=== PATIENT | female | born 1985 | race Caucasian/White ===

== ENCOUNTER 2016-09-26 19:42 | Emergency (ER) | payer OTHER ==
[2016-09-26] MEDS ORDERED: DIPHENHYDRAMINE HCL 50 MG CAPSULE PO ONE (20:01)
[2016-09-26] MEDS ORDERED: FAMOTIDINE 20 MG TABLET PO ONE (20:01)
--- NOTE | 2016-09-26 20:01 | ER Document Report ---
ED Medical Screen (RME) - General Chief Complaint: Rash Stated Complaint: POSSIBLE RASH Time seen by provider: 19:59 Mode of Arrival: Ambulatory Information source: Patient Notes: 31-year-old female presents to ED for rash for a couple months. States this started just on her right arm now it has spread to her chest abdomen back and legs. Patient states that starting to get itchy now. Last menstrual period I have greeted and performed a rapid initial assessment of this patient. A comprehensive ED assessment and evaluation of the patient, analysis of test results and completion of medical decision making process will be conducted by an additional ED providers. TRAVEL OUTSIDE OF THE [place] IN LAST 30 DAYS: No - Related Data Allergies/Adverse Reactions: No Known Allergies Allergy (Unverified 10/16/11 15:58) Past Medical History Renal/ Medical History: Reports: Hx Ectopic Past Surgical History: Reports: Hx Orthopedic Surgery - knee, Hx Tubal Ligation - Immunizations Hx Diphtheria, Pertussis, Tetanus Vaccination: Yes
[2016-09-26 22:13] VITALS: BP 131/86
--- NOTE | 2016-09-26 22:20 | ER Document Report ---
HPI - HPI Patient complains to provider of: rash Pain Level: 1 Context: Patient is a 31-year-old female that comes emergency department for chief complaint of a rash, she states she has had a rash intermittently since June but over the past week or so she had a breakout the started on her back and now is on her arms and abdomen. She states the rash is circular and very itchy. Patient has not tried to place any cream or tried any treatments for this. Patient denies any daily medications. Past medical history of tubal ligation. - REPRODUCTIVE Reproductive: DENIES: : - DERM Skin Color: Normal, [place] Past Medical History - General Information source: Patient - Social History Smoking Status: Never Smoker Frequency of alcohol use: None Drug Abuse: None Lives with: Family Family History: Reviewed & Not Pertinent Patient has suicidal ideation: No Patient has homicidal ideation: No Renal/ Medical History: Reports: Hx Ectopic . Denies: Hx Peritoneal Dialysis Past Surgical History: Reports: Hx Orthopedic Surgery - knee, Hx Tubal Ligation - Immunizations Hx Diphtheria, Pertussis, Tetanus Vaccination: Yes Vertical Provider Document - CONSTITUTIONAL General Appearance: WD/WN, No Apparent Distress - INFECTION CONTROL TRAVEL OUTSIDE OF THE [place] IN LAST 30 DAYS: No - HEENT HEENT: Atraumatic, Normocephalic - NECK Neck: Normal Inspection - RESPIRATORY Respiratory: Breath Sounds Normal, No Respiratory Distress O2 Sat by Pulse Oximetry: 98 - CARDIOVASCULAR Cardiovascular: Regular Rate, Regular Rhythm - GI/ABDOMEN Gastrointestinal: Abdomen Soft, Abdomen Non-Tender - MUSCULOSKELETAL/EXTREMETIES Musculoskeletal/Extremeties: MAEW, FROM, Non-Tender - NEURO Level of Consciousness: Awake, Alert, Appropriate - DERM Integumentary: Rash - Circular rash in separate spots over the arms, abdomen, and lower back. Nontender, no fluctuance or induration, no vesicles, pustules, the rash is macular in appearance. Irregular erythematous borders. Course - Re-evaluation Re-evalutation: Itchy rash with irregular erythematous borders, macular. Appears to be most likely fungal, no plaques or other abnormalities are noted. No signs of infection with no significant erythema, no induration or fluctuance. Patient referred to dermatology as well. - Vital Signs Vital signs: Temp Pulse Resp BP Pulse Ox 97.9 F 73 16 131/86 H 98 09/26/16 22:10 09/26/16 22:10 09/26/16 22:10 09/26/16 22:10 09/26/16 22:10 Discharge - Discharge Clinical Impression: Rash Condition: Stable Disposition: HOME, SELF-CARE Additional Instructions: Apply cream as directed. Take Zyrtec antihistamine as directed, take Benadryl at night for itching if needed. If symptoms continue follow-up with dermatology referral for additional management. Return to emergency department for any concerning or worsening symptoms including spreading redness, fever, etc. Prescriptions: Cetirizine HCl [Zyrtec 10 mg Tablet] 1 tab PO DAILY #30 tablet Clotrimazole 30 gm TP ASDIR PRN #2 cream.gm. PRN Reason: Referrals: JUSTINA SANTIAGO, [ACTIVE STAFF] - Follow up as needed
== END 2016-09-26 22:19 | disposition home or self-care (01) ==
LOC: ER 19:42
DX: R21 Rash and other nonspecific skin eruption (principal); Z98.51 Tubal ligation status
CPT/HCPCS: 99282

== ENCOUNTER 2017-04-16 18:24 | Emergency (ER) | payer MEDICAID ==
--- NOTE | 2017-04-16 19:19 | ER Document Report ---
ED Extremity Problem, Lower - General Chief Complaint: Foot Injury Stated Complaint: RIGHT FOOT/ TOE INJURY Time Seen by Provider: 04/16/17 19:01 Mode of Arrival: Ambulatory Information source: Patient Notes: 31-year-old female presents to ED for injury to her right great toe around 1 PM today. She states she was playing with the dog and accidentally kicked the pool table while chasing her dog. She is having bleeding around the toenail and under the toenail. She is concerned that she might have broken her left great toe. TRAVEL OUTSIDE OF THE [place] IN LAST 30 DAYS: No - HPI Patient complains to provider of: Injury, Pain, Swelling Location: Great Toe - Right Occurred: This afternoon Where: Home, Indoors Onset/Duration: Sudden Quality of pain: Sharp Severity: Moderate Pain Level: 4 Context: Direct blow Recent injury: Yes Associated symptoms: Painful ambulation Exacerbated by: Movement, Walking Relieved by: Elevation, Ice, Rest - Related Data Allergies/Adverse Reactions: No Known Allergies Allergy (Unverified 10/16/11 15:58) Past Medical History - General Information source: Patient - Social History Smoking Status: Current Every Day Smoker Cigarette use (# per day): Yes - 10 cigs a day Chew tobacco use (# tins/day): No Smoking Education Provided: Yes - less than 1 min Frequency of alcohol use: None Drug Abuse: None Occupation: cashier gambling Lives with: Spouse/Significant other Family History: Arthritis, CAD, DM, Hyperlipidemia, Hypertension Patient has suicidal ideation: No Patient has homicidal ideation: No - Past Medical History Cardiac Medical History: Reports: None Pulmonary Medical History: Reports: None EENT Medical History: Reports: None Neurological Medical History: Reports: None Endocrine Medical History: Reports: None Renal/ Medical History: Reports: Hx Ectopic Malignancy Medical History: Reports: None GI Medical History: Reports: None Musculoskeltal Medical History: Reports Hx Musculoskeletal Trauma Skin Medical History: Reports None Psychiatric Medical History: Reports: None Traumatic Medical History: Reports: None Infectious Medical History: Reports: None Past Surgical History: Reports: Hx Gynecologic Surgery - left tube removed, Hx Orthopedic Surgery - knee, Hx Tubal Ligation - Immunizations Hx Diphtheria, Pertussis, Tetanus Vaccination: Yes Review of Systems - Review of Systems Constitutional: No symptoms reported EENT: No symptoms reported Cardiovascular: No symptoms reported Respiratory: No symptoms reported Gastrointestinal: No symptoms reported Genitourinary: No symptoms reported Female Genitourinary: No symptoms reported Musculoskeletal: No symptoms reported Skin: No symptoms reported Hematologic/Lymphatic: No symptoms reported Neurological/Psychological: No symptoms reported -: Yes All other systems reviewed and negative Physical Exam - Vital signs Vitals: Temp Pulse Resp BP Pulse Ox 98.6 F 93 16 119/79 100 04/16/17 18:27 04/16/17 18:27 04/16/17 18:27 04/16/17 18:27 04/16/17 18:27 Interpretation: Normal - General General appearance: Appears well, Alert - HEENT Head: Normocephalic, Atraumatic Eyes: Normal Pupils: PERRL - Respiratory Respiratory status: No respiratory distress Chest status: Nontender Breath sounds: Normal Chest palpation: Normal - Cardiovascular Rhythm: Regular Heart sounds: Normal auscultation Murmur: No - Abdominal Inspection: Normal Distension: No distension Bowel sounds: Normal Tenderness: Nontender Organomegaly: No organomegaly - Back Back: Normal, Nontender - Extremities General upper extremity: Normal inspection, Nontender, Normal color, Normal ROM , Normal temperature General lower extremity: Normal color, Normal ROM, Normal temperature. No: Angelika's sign Foot: Tender, Ecchymosis, Nail injury, No evidence of FB - Neurological Neuro grossly intact: Yes Cognition: Normal Orientation: AAOx4 [place] Coma Scale Eye Opening: Spontaneous [place] Coma Scale Verbal: Oriented [place] Coma Scale Motor: Obeys Commands [place] Coma Scale Total: 15 Speech: Normal Motor strength normal: LUE, RUE, LLE, RLE Sensory: Normal - Psychological Associated symptoms: Normal affect, Normal mood - Skin Skin Temperature: Warm Skin Moisture: Dry Skin Color: Normal Course - Re-evaluation Re-evalutation: 04/16/17 20:48 Discussed x-ray with patient and written report given to patient for follow-up. Trephanation completed to the right great pain with a large amount of blood return. Patient medicated with ibuprofen, Keflex, and [place] dispense back in the emergency room and discharged home with prescription for ibuprofen and Keflex. Patient instructed to follow-up with orthopedic - Vital Signs Vital signs: Temp Pulse Resp BP Pulse Ox 98.6 F 93 16 119/79 100 04/16/17 18:27 04/16/17 18:27 04/16/17 18:27 04/16/17 18:27 04/16/17 18:27 - Diagnostic Test Radiology reviewed: Image reviewed, Reports reviewed Procedures - Immobilization Right Toe Great toe Time completed: 20:47 Pre-Proc Neuro Vasc Exam: Normal Immobilizer type: Crutches, Post-op shoe Performed by: MARY Post-Proc Neuro Vasc Exam: Normal Alignment checked and good: Yes - Nail Trephanation/Removal Right Great toe Time completed: 20:46 Nail Trepanation/Removal Location: nail trepanantion Betadine prep applied: Yes Method of Drainage: Nail cauterized Sterile Dressing Applied: Yes Finger Splint: No - post op shoe Discharge - Discharge Clinical Impression: open tuft fracture right great toe Condition: Stable Disposition: HOME, SELF-CARE Additional Instructions: Fractured Toe You have fractured your toe. Although this fracture doesn't need a cast or splint, emergency evaluation was needed to assess the straightness of the bones and joints. Reduction ("setting") is necessary for toe fractures which are crooked or twisted. A toe fracture will heal in about three weeks. Usually, the fractured toe is taped to the next toe. The second toe acts as a moving splint to protect the broken one. Ice and elevation help during the first 48 hours. You may need crutches at first if walking is painful. When you begin walking, be careful NOT to do things that hurt. If weight bearing is not comfortable within a few days, you may require a special shoe, walking boot, or cast. Call the doctor or return at once if severe swelling, severe pain, or numbness develop in the toe, or if you suspect you may have re-injured it. Your fracture is in the end of your toe. It is an open tuft fracture which means that there is a opening to the environment. Is very important that you follow-up with orthopedics for this open tuft fracture. Subungual Hematoma You have a collection of blood between the nail bed and nail, called a subungual hematoma. This injury is often very painful due to the pressure that builds up under the nail. The pressure is relieved by draining blood from beneath the nail, either by creating some small holes in it, or by the nail from the skin. This will usually stop the pain. Sometimes the nail must be removed completely to examine the nail bed for injury. You should elevate the injured digit as much as possible for the next two days. Usually the injured nail will separate from its bed over the next few weeks. A new nail will grow over the exposed nail bed. This may take two or three months. If swelling around the cuticle, redness, fever, or increasing pain occur, you should call the doctor immediately. Cephalexin The antibiotic you've been prescribed is a member of the cephalosporin class. This type of antibiotic covers a wide variety of infections, including those of the skin, lungs, and urinary tract. It's useful for staph infections. This antibiotic is slightly similar to the penicillin family. In rare cases , a person who is allergic to penicillin will also be allergic to this medication. If you have had a severe allergic reaction to penicillin, and have not taken this antibiotic since that time, notify your doctor. Antibiotics which cover many germs ("broad spectrum" antibiotics) are more likely to cause diarrhea or "yeast" infections. Women prone to vaginal yeast problems may suffer an attack after taking this antibiotic. In infants, oral thrush (white spots "stuck" on the cheek) or yeast diaper rash may result. See your doctor if these problems occur. Call at once if you develop itching, hives , shortness of breath, or lightheadedness. USE OF CRUTCHES: The doctor has recommended that you not bear weight at this time. You will need to use crutches. Adjust the crutches so the tops come to about two inches under the armpit while you are standing upright. Use your hands -- not your armpits -- to support your weight. To get into a chair, support yourself with one crutch on the injured side. Hold the chair with the other hand, then lower yourself while putting all your weight on the good leg. Going up stairs is `good leg up, step up, then bring up crutches and bad leg.' Down stairs is `bad leg and crutches down, then bring good leg down.' If you develop numbness or swelling in an arm or hand, you are using the crutches incorrectly. Return if you are having any problems with the crutches. Post-Op Shoe You are to use a "post-op shoe," sometimes also called a "bunnion shoe." This shoe helps protect minor fractures, sprains, and other injuries of the toes or foot. You may remove the shoe for bathing. Walk carefully. If you're feeling pain, put less weight on the foot, take smaller steps, or use a cane. If you have a new injury, you may need to use crutches for the first couple of days. If pain still prevents walking after a few days, contact the doctor. If there's unexpected pain in your foot, if blisters or sore spots develop , or if the shoe is physically coming apart, return at once. Remember that you' re welcome to come in at any time to have the fit of the shoe checked and adjusted. ICE & ELEVATION: Apply ice packs frequently against the painful area. Many different schedules are recommended, such as "20 minutes on, 20 minutes off" or "one hour ice, two hours rest." If you need to work, you may need to go longer between ice treatments. You should plan to have the area ice packed AT LEAST one- fourth of the time. The ice should be applied over the wrap, tape, or splint, or over a layer of cloth -- not directly against the skin. Some ice bags have a built-in cloth and can be put directly on the skin. Your injured part should be elevated as much as possible over the next 48 hours. Try to keep the injury above the level of the heart. Avoid use of the injured area. Elevation and rest will decrease the swelling. USE OF JIFI-FDI-POSZVKS IBUPROFEN: Ibuprofen (Advil, Nuprin, Medipren, Motrin IB) is a medication for fever and pain control. In addition, it has anti- inflammatory effects which may be beneficial, especially in the treatment of injuries. It's best to take ibuprofen with food. Persons with ulcer disease or allergy to aspirin should notify their physician of this before taking ibuprofen. Ibuprofen can be given every four to six hours, for a total of four doses daily. Age Pain or fever dose Antiinflammatory dose 6-8 yr 200 mg (1 tab) 200 mg (1 tab) 9-11 yr 200 mg (1 tab) 200-400 mg (1-2 tab) 11-14 yr 200-400 mg (1-2 tab) 400 mg (2 tab) 15-adult 400 mg (2 tab) 600 mg (3 tab) ORAL NARCOTIC MEDICATION: You have been given a dispense pack of [place] for pain control. This medication is a narcotic. It's best taken with food, as nausea can result if taken on an empty stomach. Don't operate machinery or drive within six hours of taking this medication. Do not combine this medicine with alcohol, or with any medication which can cause sedation (such as cold tablets or sleeping pills) unless you get permission from the physician. Narcotics tend to cause constipation. If possible, drink plenty of fluids and eat a diet high in fiber and fruits. Please be aware that prescription narcotics also have the potential for abuse. People become addicted to these medications because of the general sense of wellbeing that they induce. This feeling along with a significant reduction in tension, anxiety, and aggression provides a stimulating seductive quality to these drugs. Once your pain is under control, we encourage you to discard your unused narcotics. FOLLOW-UP CARE: If you have been referred to a physician for follow-up care, call the physician s office for an appointment as you were instructed or within the next two days. If you experience worsening or a significant change in your symptoms, notify the physician immediately or return to the Emergency Department at any time for re-evaluation. Prescriptions: Ibuprofen 600 mg PO Q6HP PRN #14 tablet PRN Reason: Cephalexin Monohydrate [Keflex 500 mg Capsule] 500 mg PO QID #20 capsule Forms: Smoking Cessation Education, Return to Work Referrals: MARQUISE ANDREWS DO [ACTIVE STAFF] - Follow up as needed
[2017-04-16] MEDS ORDERED: IBUPROFEN 600 MG TABLET PO ONE (19:20)
--- NOTE | 2017-04-16 19:59 | RADIOLOGY REPORT (SQ) ---
EXAM DESCRIPTION: TOE RIGHT COMPLETED DATE/TIME: 04/16/2017 7:49 pm REASON FOR STUDY: Pain s/p injury COMPARISON: None. NUMBER OF VIEWS: Three views. TECHNIQUE: AP, lateral, and oblique images acquired of the right first toe. LIMITATIONS: None. FINDINGS: MINERALIZATION: Normal. BONES: Mildly displaced Distal tuft fracture. No dislocation. No worrisome bone lesions. JOINTS: No effusions. SOFT TISSUES: Distal soft tissue swelling. No radiopaque foreign body. OTHER: No other significant finding. IMPRESSION: Mildly displaced Distal tuft fracture of the right great toe. COMMENT: SITE OF TRAUMA/COMPLAINT MARKED/STAMP COMPLETED: No TECHNICAL DOCUMENTATION: JOB ID: [id number] [employer]- All Rights Reserved
[2017-04-16] MEDS ORDERED: CEPHALEXIN 500 MG CAPSULE PO ONE (20:35)
[2017-04-16] MEDS ORDERED: HYDROCODONE/ACETAMINOPHEN 5-325 MG 6 TAB/DSPK PO PRN (20:35)
[2017-04-16 21:02] VITALS: BP 122/77
== END 2017-04-16 21:00 | disposition home or self-care (01) ==
LOC: ER 18:24
DX: S92.421B Displaced fracture of distal phalanx of right great toe, initial encounter for open fracture (principal); W21.89XA Striking against or struck by other sports equipment, initial encounter; Y93.K9 Activity, other involving animal care; Y92.009 Unspecified place in unspecified non-institutional (private) residence as the place of occurrence of the external cause; F17.210 Nicotine dependence, cigarettes, uncomplicated; Z71.6 Tobacco abuse counseling
CPT/HCPCS: 99283; 73660; 11740; J3490